=== PATIENT | male | born 1945 | race Caucasian/White ===

== ENCOUNTER 2018-12-21 12:04 | Outpatient (REF) | payer MEDICARE, BC, SELFPAY ==
[2018-12-21 22:05] LABS: Anion Gap 9.2 mmol/L (3-11); BUN 14 mg/dL (7-18); CO2 27.8 mmol/L (21.0-32.0); CREATININE 0.88 mg/dL (0.70-1.30); Calcium 9.2 mg/dL (8.5-10.1); Calculated LDL 133 mg/dL; Chloride 104 mmol/L (98-107); Cholesterol 201 mg/dL (50-200); Glucose 91 mg/dL (70-100); HDL Cholesterol 55 mg/dL (40-60); Potassium 4.5 mmol/L (3.5-5.1); Sodium 141 mmol/L (136-145); Triglyceride 65 mg/dL (30-150)
== END 2018-12-21 12:24 ==
LOC: NCHCN 12:04
PROVIDERS: PCP Internal Medicine; Visit Provider Internal Medicine
DX: R03.0 Elevated blood-pressure reading, without diagnosis of hypertension (principal); Z13.6 Encounter for screening for cardiovascular disorders
CPT/HCPCS: 80048; 80061

== ENCOUNTER 2020-12-28 15:58 | Outpatient (REF) | payer MEDICARE, BC, SELFPAY ==
[2020-12-28 16:58] LABS: Anion Gap 7.9 mmol/L (3-11); BUN 13 mg/dL (7-18); CO2 28.1 mmol/L (21.0-32.0); CREATININE 0.9 mg/dL (0.70-1.30); Calcium 9.1 mg/dL (8.5-10.1); Calculated LDL 71 mg/dL (<100); Chloride 105 mmol/L (98-107); Cholesterol 153 mg/dL (<200); Glucose 104 mg/dL (74-106); HDL Cholesterol 60 mg/dL (40-60); Potassium 4.6 mmol/L (3.5-5.1); Sodium 141 mmol/L (136-145); Triglyceride 110 mg/dL (<150)
== END 2020-12-28 15:59 | disposition home or self-care (01) ==
LOC: NCHCN 15:58
PROVIDERS: PCP Internal Medicine; Visit Provider Internal Medicine
DX: E78.5 Hyperlipidemia, unspecified (principal); I10 Essential (primary) hypertension
CPT/HCPCS: 80048; 80061

== ENCOUNTER 2021-12-29 07:35 | Outpatient (REF) | payer MEDICARE, BC, SELFPAY ==
[2021-12-29 15:27] LABS: ALT 30 U/L (16-63); AST 19 U/L (15-37); Albumin 4.2 g/dL (3.4-5.0); Alkaline Phosphatase 81 U/L (46-116); Anion Gap 8.7 mmol/L (3-11); BUN 11 mg/dL (7-18); Bilirubin, Total 0.6 mg/dL (0.2-1.0); CO2 26.3 mmol/L (21.0-32.0); CREATININE 0.9 mg/dL (0.70-1.30); Calcium 9.3 mg/dL (8.5-10.1); Calculated LDL 62 mg/dL (<100); Chloride 104 mmol/L (98-107); Cholesterol 147 mg/dL (<200); Estimated GFR 89.07 (mL/min/1.73m2); Glucose 116 mg/dL (74-106); HDL Cholesterol 63 mg/dL (40-60); Potassium 4.4 mmol/L (3.5-5.1); Sodium 139 mmol/L (136-145); Total Protein 7.5 g/dL (6.4-8.2); Triglyceride 114 mg/dL (<150)
== END 2021-12-29 07:36 | disposition home or self-care (01) ==
LOC: NCHCN 07:35
PROVIDERS: PCP Internal Medicine; Visit Provider Internal Medicine
DX: E78.5 Hyperlipidemia, unspecified (principal)
CPT/HCPCS: 80053; 80061

== ENCOUNTER 2023-01-02 18:00 | Outpatient (REF) | payer MEDICARE, BC, SELFPAY ==
[2023-01-02 17:19] LABS: Anion Gap 9.2 mmol/L (3-11); BUN 10 mg/dL (7-18); CO2 26.8 mmol/L (21.0-32.0); CREATININE 0.9 mg/dL (0.70-1.30); Calcium 9.4 mg/dL (8.5-10.1); Chloride 106 mmol/L (98-107); Estimated GFR 88.51 (mL/min/1.73m2); Glucose 100 mg/dL (74-106); Potassium 4.1 mmol/L (3.5-5.1); Sodium 142 mmol/L (136-145)
[2023-01-02 17:43] LABS: Hemoglobin A1C 5.8 % (<5.7)
== END 2023-01-02 18:01 | disposition home or self-care (01) ==
LOC: NCHCN 18:00
PROVIDERS: PCP Internal Medicine; Visit Provider Internal Medicine
DX: R73.03 Prediabetes (principal); E78.5 Hyperlipidemia, unspecified; Z00.00 Encounter for general adult medical examination without abnormal findings
CPT/HCPCS: 80048; 83036

== ENCOUNTER 2024-01-04 07:35 | Outpatient (REF) | payer MEDICARE, BC, SELFPAY ==
[2024-01-04 15:04] LABS: Hemoglobin A1C 5.2 % (<5.7)
[2024-01-04 16:11] LABS: Anion Gap 9.4 mmol/L (3-11); BUN 12 mg/dL (7-18); CO2 24.6 mmol/L (21.0-32.0); CREATININE 0.9 mg/dL (0.70-1.30); Calcium 9.5 mg/dL (8.5-10.1); Chloride 106 mmol/L (98-107); Estimated GFR 87.96 (mL/min/1.73m2); Glucose 97 mg/dL (74-106); Potassium 4.1 mmol/L (3.5-5.1); Sodium 140 mmol/L (136-145)
== END 2024-01-04 07:36 | disposition home or self-care (01) ==
LOC: NCHCN 07:35
PROVIDERS: PCP Internal Medicine; Visit Provider Internal Medicine
DX: R73.03 Prediabetes (principal)
CPT/HCPCS: 80048; 83036

== ENCOUNTER 2024-05-30 20:36 | Outpatient (REF) | payer MEDICARE, BC, SELFPAY ==
[2024-06-04 11:13] LABS: Helicobacter pylori Ag, Feces Negative (Negative)
== END 2024-05-30 20:37 | disposition home or self-care (01) ==
LOC: NCHCN 20:36
PROVIDERS: PCP Internal Medicine; Visit Provider Internal Medicine
DX: R19.7 Diarrhea, unspecified (principal)
CPT/HCPCS: 87338

== ENCOUNTER 2024-08-14 11:51 | Outpatient (REF) | payer MEDICARE, BC, SELFPAY ==
[2024-08-14 15:06] LABS: BUN 14 mg/dL (7-18); CREATININE 1.1 mg/dL (0.70-1.30); Calcium 9.2 mg/dL (8.5-10.1); Chloride 102 mmol/L (98-107); Estimated GFR 69.14 (mL/min/1.73m2); Glucose 150 mg/dL (74-106); Potassium 3.6 mmol/L (3.5-5.1); Sodium 137 mmol/L (136-145)
== END 2024-08-14 11:52 | disposition home or self-care (01) ==
LOC: NCHCN 11:51
PROVIDERS: PCP Internal Medicine; Visit Provider Internal Medicine
DX: I10 Essential (primary) hypertension (principal)
CPT/HCPCS: 80048

== ENCOUNTER 2025-01-20 14:42 | Outpatient (REF) | payer MEDICARE, BC, SELFPAY ==
[2025-01-20 15:47] LABS: ALT 27 U/L (16-63); AST 25 U/L (15-37); Albumin 3.7 g/dL (3.4-5.0); Alkaline Phosphatase 80 U/L (46-116); Anion Gap 10.3 mmol/L (3-11); BUN 10 mg/dL (7-18); Bilirubin, Total 0.9 mg/dL (0.2-1.0); CO2 24.7 mmol/L (21.0-32.0); Calcium 8.8 mg/dL (8.5-10.1); Chloride 104 mmol/L (98-107); Cholesterol 143 mg/dL (<200); Glucose 89 mg/dL (74-106); HDL Cholesterol 79 mg/dL (>or=40); Potassium 3.7 mmol/L (3.5-5.1); Sodium 139 mmol/L (136-145); Total Protein 6.6 g/dL (6.4-8.2)
== END 2025-01-20 14:43 | disposition home or self-care (01) ==
LOC: NCHCN 14:42
PROVIDERS: PCP Internal Medicine; Visit Provider Internal Medicine
DX: E78.5 Hyperlipidemia, unspecified (principal); I10 Essential (primary) hypertension
CPT/HCPCS: 80053; 80061